=== PATIENT | female | born 1995 | race Caucasian/White ===

== ENCOUNTER 2020-09-28 23:43 | Emergency (ER) | payer OTHER ==
[~2020-09-28] VITALS: Ht 149.9 cm; Wt 58.2 kg
[2020-09-29 00:55] LABS: BILIRUBIN,URINE NEGATIVE (NEG); CLARITY,URINE CLEAR; COLOR,URINE YELLOW; NITRITE,URINE NEGATIVE (NEG); PH,URINE 5.5 (<5.0-8.0); PROTEIN,URINE NEGATIVE (NEG-TRACE); UROBILINOGEN,URINE 0.2 mg/dL (0.2 mg/dL)
[2020-09-29 01:16] LABS: BACTERIA,URINE FEW /HPF (0-FEW); RBC,URINE >40 /HPF (0-2)
[2020-09-29 01:20] VITALS: BP 115/71
--- NOTE | 2020-09-29 01:30 | RAD ---
EXAM: OBSTETRIC ULTRASOUND, <14 WEEKS. HISTORY: Vaginal bleeding in . COMPARISON: None. FINDINGS: Sonographic evaluation of the pelvis was performed transabdominally and transvaginally. The uterus is anteverted and measures 7.5 x 3.3 x 3.7 cm. No intrauterine gestation is identified. Th e endometrial stripe measures 14 mm. The right ovary measures 2.6 x 2.9 x 1.3 cm. The left ovary measures 1.8 x 1.7 x 1.6 cm. A dominant f ollicle in the left ovary measures 13 x 11 mm. There is normal Doppler flow bilaterally. There is no adnexal mass. There is no significant free fluid. IMPRESSION: 1. No intrauterine gestation is identified. Correlate with quantitative beta hCG to determine if this is appropriate. Electronically signed by: Maria Alejandra York MD (09/29/2020 1:27 AM) [facility]
[2020-09-29 01:40] LABS: BASO # 0.1 x10^3/uL (0.0-0.2); BASO % 1 % (0-3); EOS # 0.2 x10^3/uL (0.0-0.7); EOS % 1 % (0-3); HEMATOCRIT 40.8 % (36.0-47.0); HEMOGLOBIN 13.7 g/dL (12.0-15.5); LYMPH % 16 % (24-48); MEAN CORPUSCULAR HEMOGLOBIN 30 pg (25-35); MEAN CORPUSCULAR HGB CONC 34 g/dL (31-37); MEAN CORPUSCULAR VOLUME 89 fL (79-100); MONO # 0.6 x10^3/uL (0.0-1.1); MONO % 5 % (0-9); NEUT # 9.4 x10^3/uL (1.8-7.7); NEUT % 77 % (31-73); PLATELET COUNT 417 x10^3/uL (140-400); RED BLOOD COUNT 4.59 x10^6/uL (3.50-5.40); RED CELL DISTRIBUTION WIDTH 13.5 % (11.5-14.5); WHITE BLOOD COUNT 12.2 x10^3/uL (4.0-11.0)
[2020-09-29 01:45] LABS: CALCIUM 9.9 mg/dL (8.5-10.1); CREATININE 0.8 mg/dL (0.6-1.0); GFR 87.4; POTASSIUM 3.9 mmol/L (3.5-5.1)
[2020-09-29 01:51] LABS: ALBUMIN 4.2 g/dL (3.4-5.0); ALBUMIN/GLOBULIN RATIO 1.1 (1.0-1.7); TOTAL BILIRUBIN 0.2 mg/dL (0.2-1.0); TOTAL PROTEIN 8.1 g/dL (6.4-8.2)
--- NOTE | 2020-09-29 02:04 | PHYS DOC ---
Past Medical History Past Surgical History: Smoking Status: Never Smoker Alcohol Use: None General Adult EDM: Chief Complaint: VAGINAL BLEEDING HPI: HPI: 25 yo presents to the ED with concern for vaginal bleeding that started around 11 PM last night, home test was +2 weeks ago. Has an [facility] [employer] appointment with at [place] on Thursday. Has a 2-year-old son and had a miscarriage in January. Is not on any fertility medications. Unknown blood type. Is very emotional in the ED and has supportive mother at bedside, (patient consents to his/her/their knowledge and involvement in pts' medical care), Review of Systems: Review of Systems: Constitutional: Denies fever or chills. [] Eyes: Denies change in visual acuity. [] HENT: Denies nasal congestion or sore throat. [] Respiratory: Denies cough or shortness of breath. [] Cardiovascular: Denies chest pain or edema. [] GI: Denies abdominal pain, nausea, vomiting, or diarrhea. [] : Denies dysuria or hematuria or abnormal vaginal discharge or itching Musculoskeletal: Denies back pain or joint pain. [] Integument: Denies rash or diaphoresis Neurologic: Denies headache, focal weakness or sensory changes. [] Endocrine: Denies polyuria or polydipsia. [] Lymphatic: Denies swollen glands. [] Psychiatric: Denies depression or anxiety. [] Heart Score: C/O Chest Pain: No Risk Factors: Risk Factors: DM, Current or recent (<one month) smoker, HTN, HLP, family h istory of CAD, obesity. Risk Scores: Score 0 - 3: 2.5% MACE over next 6 weeks - Discharge Home Score 4 - 6: 20.3% MACE over next 6 weeks - Admit for Clinical Observation Score 7 - 10: 72.7% MACE over next 6 weeks - Early Invasive Strategies Allergies: Allergies: Allergies Coded Allergies Type Severity Reaction Last Updated Verified No Known Drug Allergies 09/29/20 No Physical Exam: PE: Constitutional: Well developed, well nourished, no acute distress, non-toxic appearance. HENT: Normocephalic, atraumatic, Eyes: EOMI, conjunctiva normal, no discharge. Neck: Normal range of motion, supple, Cardiovascular: S1/2 present, regular rhythm Lungs & Thorax: Speaking in full sentences, bilateral equal chest rise, no tachypnea or increased work of breathing Abdomen: soft, no tenderness, Skin: Warm, dry, no erythema, no rash. [] Back: No tenderness, no CVA tenderness. [] Extremities: No tenderness, no cyanosis, no lower extremity edema Neurologic: Alert and oriented X 3, normal motor function, normal sensory function, no focal deficits noted. [] Psychologic: Affect normal, judgement normal, mood-emotional/tearful/overwhelmed Pelvic: Chaperoned by RN, external genitalia normal normal nonmalodorous vaginal bloody discharge, cervical os open, no brisk bleeding with Valsalva, tolerated exam well Current Patient Data: Labs: Laboratory Tests Test 09/28/20 23:48 09/29/20 00:30 09/29/20 01:20 POC Urine HCG, Qualitative Hcg positive (Negative) Urine Collection Type Unknown Urine Color Yellow Urine Clarity Clear Urine pH 5.5 (<5.0-8.0) Urine Specific [place] 1.025 (1.000-1.030) Urine Protein Negative mg/dL (NEG-TRACE) Urine Glucose (UA) Negative mg/dL (NEG) Urine Ketones (Stick) Trace mg/dL (NEG) Urine Blood Large (NEG) Urine Nitrite Negative (NEG) Urine Bilirubin Negative (NEG) Urine Urobilinogen Dipstick 0.2 mg/dL (0.2 mg/dL) Urine Leukocyte Esterase Negative (NEG) Urine RBC >40 /HPF (0-2) Urine WBC 1-4 /HPF (0-4) Urine Squamous Epithelial Cells Mod /LPF Urine Bacteria Few /HPF (0-FEW) Urine Mucus Marked /LPF White Blood Count 12.2 x10^3/uL (4.0-11.0) H Red Blood Count 4.59 x10^6/uL (3.50-5.40) Hemoglobin 13.7 g/dL (12.0-15.5) Hematocrit 40.8 % (36.0-47.0) Mean Corpuscular Volume 89 fL (79-100) Mean Corpuscular Hemoglobin 30 pg (25-35) Mean Corpuscular Hemoglobin Concent 34 g/dL (31-37) Red Cell Distribution Width 13.5 % (11.5-14.5) Platelet Count 417 x10^3/uL (140-400) H Neutrophils (%) (Auto) 77 % (31-73) H Lymphocytes (%) (Auto) 16 % (24-48) L Monocytes (%) (Auto) 5 % (0-9) Eosinophils (%) (Auto) 1 % (0-3) Basophils (%) (Auto) 1 % (0-3) Neutrophils # (Auto) 9.4 x10^3/uL (1.8-7.7) H Lymphocytes # (Auto) 2.0 x10^3/uL (1.0-4.8) Monocytes # (Auto) 0.6 x10^3/uL (0.0-1.1) Eosinophils # (Auto) 0.2 x10^3/uL (0.0-0.7) Basophils # (Auto) 0.1 x10^3/uL (0.0-0.2) Maternal Serum HCG Beta Subunit 265 mIU/mL (0-5) H Sodium Level 140 mmol/L (136-145) Potassium Level 3.9 mmol/L (3.5-5.1) Chloride Level 102 mmol/L (98-107) Carbon Dioxide Level 28 mmol/L (21-32) Anion Gap 10 (6-14) Blood Urea Nitrogen 11 mg/dL (7-20) Creatinine 0.8 mg/dL (0.6-1.0) Estimated GFR (Cockcroft-Gault) 87.4 BUN/Creatinine Ratio 14 (6-20) Glucose Level 111 mg/dL (70-99) H Calcium Level 9.9 mg/dL (8.5-10.1) Total Bilirubin 0.2 mg/dL (0.2-1.0) Aspartate Amino Transferase (AST) 17 U/L (15-37) Alanine Aminotransferase (ALT) 25 U/L (14-59) Alkaline Phosphatase 71 U/L (46-116) Total Protein 8.1 g/dL (6.4-8.2) Albumin 4.2 g/dL (3.4-5.0) Albumin/Globulin Ratio 1.1 (1.0-1.7) Laboratory Tests 09/29/20 01:20 Laboratory Tests 09/29/20 01:20 Vital Signs: Vital Signs Date Time Temp Pulse Resp B/P (MAP) Pulse Ox O2 Delivery O2 Flow Rate FiO2 8/7/21 01:20 100 20 115/71 (86) 97 Room Air 09/29/20 00:03 98.7 98.7 EKG: EKG: [] Radiology/Procedures: Radiology/Procedures: IMAGING REPORT Signed PATIENT: DEBRA ROSSACCOUNT: [id number] : 1995 LOCATION: ER AGE: 25 SEX: F EXAM STATUS: REG ER ORD. PHYSICIAN: JING MCHUGH DO REASON: vb in preg PROCEDURE: OB <14 WKS W/TV EXAM: OBSTETRIC ULTRASOUND, <14 WEEKS. HISTORY: Vaginal bleeding in . COMPARISON: None. FINDINGS: Sonographic evaluation of the pelvis was performed transabdominally and transvaginally. The uterus is anteverted and measures 7.5 x 3.3 x 3.7 cm. No intrauterine gestation is identified. The endometrial stripe measures 14 mm. The right ovary measures 2.6 x 2.9 x 1.3 cm. The left ovary measures 1.8 x 1.7 x 1.6 cm. A dominant follicle in the left ovary measures 13 x 11 mm. There is normal Doppler flow bilaterally. There is no adnexal mass. There is no significant free fluid. IMPRESSION: 1. No intrauterine gestation is identified. Correlate with quantitative beta hCG to determine if this is appropriate. Electronically signed by: Maria Alejandra York MD (09/29/2020 1:27 AM) [facility] DICTATED and SIGNED BY: CLYDE YORK MD DATE: 09/29/20 [id number] Course & Med Decision Making: Course & Med Decision Making Pertinent Labs and Imaging studies reviewed. (See chart for details) Concern for suspected incomplete . HCG not high enough to confirm via transvaginal ultrasound. Patient had her ultrasound performed and allowed me to perform a physical exam but after this did not wish to wait for results stating she was too emotional and knows she is having a miscarriage. I had already encouraged pt not to leave ed without further workup. Patient is aware the risk of erythroblastosis fetalis, states she was not given RhoGam on her prior miscarriage and despite risk of antibody formation, ectopic or life-threatening process, requested to be discharged AMA. Patient would not wait to speak to me regarding leaving AMA nor does she wait for discharge papers. The patient has decided to leave our facility against medical advice. I have assessed patient's ability to make informed decision and feel the patient has the capacity to comprehend information regarding the current medical condition and appreciates the impact of the disease or condition and the consequences of various options for treatment, including foregoing treatment. The patient possesses the ability to evaluate all treatment options, comparing the risks and benefits of each option, communicate his or her choice in a consistent manner over time, and is able to make rational choices. I had explained to the patient further testing, treatment, and evaluation I would like to perform in the emergency department visit. I have outlined the possible risks of foregoing any or all of these interventions and the patient understands and acknowledges that the decision to leave may result in undesirable consequences such as , permanent disability, and/or loss of current lifestyle. Even though leaving AMA is not ideal, rn encouraged pt to resume care as soon as possible with another provider. RN clearly communicated the patient is welcome to return anytime to continue care at our facility. Samreen Disclaimer: Samreen Disclaimer: This electronic medical record was generated, in whole or in part, using a voice recognition dictation system. Departure Departure Impression: Primary Impression: Vaginal bleeding in Additional Impression: Left against medical advice Disposition: 07 LEFT AGAINST MEDICAL ADVICE Condition: STABLE Referrals: NO PCP (PCP) JING MCHUGH DO Sep 29, 2020 02:04
== END 2020-09-29 02:00 | disposition left against medical advice (07) ==
LOC: ER 23:43
DX: O46.91 Antepartum hemorrhage, unspecified, first trimester (principal); Z3A.00 Weeks of gestation of pregnancy not specified
CPT/HCPCS: 36415; 76801; 76817; 80053; 81001; 81025; 84702; 85025; 86850; 86900; 86901; 99284